=== PATIENT | female | born 1935 | race Caucasian/White ===

== ENCOUNTER 2019-06-23 07:09 | Inpatient (IN) | payer BC ==
[~2019-06-23] VITALS: Ht 154.9 cm; Wt 47.3 kg
--- NOTE | 2019-06-23 07:15 | NUR ---
Patient to ER bed 6 to gown for evaluation. Side rails up. Report given to Venice GARCIA.
--- NOTE | 2019-06-23 07:18 | NUR ---
Patient presented to ER with C/O SOB. Patient A&Ox4, arrived to ER ambulating with cane with Daughter. skin pink, cough present, afebrile denies pain, denies N/V/D. Patient woke up at 2 am "not able to catch my breath". Patient states she has had history of SOB. Patient states she has history of HTN, hystorectomy, right knee sx, and IBS
[2019-06-23 07:20] VITALS: BP_SYST 137
--- NOTE | 2019-06-23 07:40 | NUR ---
Radiology at bedside for portable chest x-ray.
--- NOTE | 2019-06-23 07:50 | NUR ---
ER Dr. Mcguire at bedside examining patient.
[2019-06-23 07:54] LABS: ANION GAP 7 (5-15); CALCIUM 9.4 mg/dL (8.4-11.0); CHLORIDE 107 mmol/L (98-107); CREATININE 1.35 mg/dL (0.55-1.30); GLUCOSE 91 mg/dL (70-99); POTASSIUM 4.1 mmol/L (3.5-5.1); SODIUM SERUM 137 mmol/L (136-145); UREA NITROGEN, BLOOD 29 mg/dL (8-21)
[2019-06-23 07:59] LABS: ALANINE AMINOTRANSFERASE 49 U/L (12-78); ALBUMIN 3.5 g/dL (3.4-4.8); ASPARTATE AMINOTRANSFERASE 66 U/L (10-37); TOTAL BILIRUBIN 0.8 mg/dL (0.0-1.0)
--- NOTE | 2019-06-23 07:59 | NUR ---
Respiratory at bedside for ABG
[2019-06-23 08:07] LABS: BASOPHILS # (AUTO) 0.1 K/uL (0.0-0.2); BASOPHILS % (AUTO) 1.7 % (0.0-2.0); EOSINOPHILS # (AUTO) 0.2 K/uL (0.0-0.4); EOSINOPHILS % (AUTO) 4.7 % (0.0-4.0); HEMATOCRIT 34.6 % (36-48); HEMOGLOBIN 11.6 g/dL (12.0-16.0); LYMPHOCYTES # (AUTO) 0.9 K/uL (1.0-5.5); LYMPHOCYTES % (AUTO) 22.2 % (20.5-51.5); MEAN CORPUSCULAR HEMOGLOBIN 33 pg (27-31); MEAN CORPUSCULAR HGB CONC 34 % (32-36); MEAN CORPUSCULAR VOLUME 98 fL (79.0-98.0); MONOCYTES # (AUTO) 0.4 K/uL (0.0-1.0); MONOCYTES % (AUTO) 8.8 % (1.7-9.3); NEUTROPHILS # (AUTO) 2.5 K/uL (1.8-7.7); NEUTROPHILS % (AUTO) 62.6 % (40.0-70.0); PLATELET COUNT (AUTO) 187 K/uL (130-430); RED BLOOD CELL COUNT(AUTO) 3.55 MIL/uL (4.2-6.2); RED CELL DISTRIBUTION WIDTH 15.5 % (9.0-15.0)
[2019-06-23 08:23] LABS: PROTHROMBIN TIME 10.5 SECS (9.5-12.5)
[2019-06-23] MEDS ORDERED: CITA20SO PO (08:59)
[2019-06-23] MEDS ORDERED: NITR-85 PO (09:02)
[2019-06-23] MEDS ORDERED: DICY10CA13 PO (09:02)
[2019-06-23] MEDS ORDERED: NOR10 PO (09:08)
[2019-06-23] MEDS ORDERED: ONDA4TAB5 PO (09:08)
[2019-06-23] MEDS ORDERED: IOHEXOL 350 mgI/mL, 150 ML INFUS..BTL IV ONE (09:13)
[2019-06-23] MEDS ORDERED: ACETAMINOPHEN 325 MG TABLET PO PRN (09:15)
--- NOTE | 2019-06-23 09:33 | NUR ---
Patient will be admitted to care of Dr. Taylor. Admitted to Tele unit. Will go to room 122A . Belongings list completed. Summary report printed. Report will be given at bedside. Transfer to Tele via ACLS protocol. Licensed nurse present. IV present no signs or symptoms of infiltration.
--- NOTE | 2019-06-23 09:38 | NUR ---
ADMISSION NOTE Received patient from ER via jennifer, received report from MIKEY GARCIA. Patient admitted with diagnosis of . Patient oriented to hospital routine, call light, toileting and safety-patient verbalized understanding.
--- NOTE | 2019-06-23 09:43 | NUR ---
CONSULTATION PAGED REASON FOR CONSULTATION:CHF WAS CONSULT CALLED?Y PERSON WHO WAS NOTIFIED:PURVI CONSULTING PHYSICIAN:FELA EMMANUEL SHANK SCOURER SPECIALTY:CARDIO SHANK SCOURER PHONE NUMBER:[phone] REQUESTING PHYSICIAN:EAMON GALLEGOS
--- NOTE | 2019-06-23 09:50 | NUR ---
Left message For Jeanne(daughter of patient) update re:admission to hospital.
[2019-06-23 09:51] VITALS: BP_SYST 157
--- NOTE | 2019-06-23 09:54 | NUR ---
MD SERVANDO CASTILLO CALLED AT SPOKE WITH DR.REDDY HEATH MALLU PERSONAL COACH.
--- NOTE | 2019-06-23 09:55 | NUR ---
INITIAL ADMISSION NOTE Patient resting in the bed. No acute distress. Respiration even and unlabored noted. On O2 2L/min via NC. AAO x 4. Denied of pain at this time. Skin warm and dry to touch. SL intact to LFA, no redness, no swelling, patent. Discussed the safety issue, use call light when needs help, and plan of care, verbally understanding. Safety measure maintained. Bed locked in low position, side rails up, bed alarm on. Call light within reached. Will continue to monitor.
[2019-06-23 10:09] LABS: CHOLESTEROL 130 mg/dL (<200); HDL CHOLESTEROL 57 mg/dL (>55); LDL CHOLESTEROL 67 mg/dL (<100); TRIGLYCERIDES 56 mg/dL (30-150)
--- NOTE | 2019-06-23 10:10 | NUR ---
BATHROOM Assisted patient to bathroom by using cane, void freely without problem and regular BM noted. Good pericare provided. Assisted back to bed. Safety measure maintained. Call light within reached. Bed locked in low position, side rails up, bed alarm on. Continue to monitor.
[2019-06-23] MEDS ORDERED: ENOXAPARIN SODIUM 30 MG/0.3 ML SYRINGE SUBCUT ONE (10:15)
[2019-06-23] MEDS ORDERED: ASPIRIN 81 MG TAB.CHEW PO ONE (10:15)
[2019-06-23] MEDS ORDERED: CITALOPRAM HYDROBROMIDE 20 MG TABLET PO ONE (10:15)
[2019-06-23] MEDS ORDERED: METOPROLOL TARTRATE 25 MG TABLET PO ONE (10:30)
[2019-06-23] MEDS ORDERED: FUROSEMIDE 20 MG/2 ML VIAL IVP ONE (10:30)
[2019-06-23 10:34] VITALS: BP_SYST 137
--- NOTE | 2019-06-23 10:34 | NUR ---
2D ECHO DOING AT BEDSIDE AT THIS TIME
[2019-06-23] MEDS: ALBUTEROL SULFATE 0.083% 2.5 MG/3 ML VIAL.NEB INH SCH ×4 (11:03→22:59)
[2019-06-23 12:00] VITALS: BP_SYST 157
--- NOTE | 2019-06-23 12:00 | NUR ---
RECEIVED THE CALL FROM EAMON DENG REGARDING THE CT CHEST WITH CONTRAST RESULT Reported the result of CT chest with IV contrast to Dr. Taylor. No evidence of PE, mild chronic lung changes with mild intralobular septal thickening and small bilateral effusion, There is faint nodular infiltrate along the minor fissure measuring 7mm.
--- NOTE | 2019-06-23 12:50 | NUR ---
BATHROOM Assisted patient to bathroom by using cane, void freely with yellow urine. Good pericare provided. Assisted back to bed. Safety measure maintained. Call light within reached. Bed locked in low position, side rails up, bed alarm on. Continue to monitor.
[2019-06-23] MEDS: ONDANSETRON HCL 4 MG/2 ML VIAL IVP PRN (13:36)
[2019-06-23] MEDS: NORMAL SALINE 5 ML DISP.SYRIN IVF SCH ×2 (13:36→20:46)
--- NOTE | 2019-06-23 15:00 | NUR ---
RESTING Patient resting in the bed. No acute distress. Continue on O2 2L/min via NC. No c/o nausea. Daughter at bedside. Safety measure maintained. Call light within reached. Bed locked in low position, side rails up. Continue to monitor.
[2019-06-23 16:00] VITALS: BP_SYST 156
--- NOTE | 2019-06-23 17:11 | NUR ---
ROUND Patient resting in the bed. No acute distress. Continue on O2 2L/min via NC. Safety measure maintained. Bed locked in low position, side rails up, bed alarm on. Call light within reached. Continue to monitor.
--- NOTE | 2019-06-23 18:33 | NUR ---
CLOSING NOTE Patient resting in the bed. No acute distress. Respiration even and unlabored noted. Continue on O2 2L/min via NC. Denied of pain. Skin warm and dry to touch. SL intact to LFA, no redness, no swelling, patent. All needs met and attended. Daughter at bedside. Safety measure maintained. Bed locked in low position, side rails up, bed alarm on. Call light within reached. Will endorse to night nurse.
--- NOTE | 2019-06-23 19:45 | NUR ---
OPENING NOTES Received patient resting in bed, no acute respiratory distress observed. Patient has IV on Left FA 22g, Saline lock. Bed alarm on, bed at lowest position, and call light within reach. Will continue to monitor.
[2019-06-23 20:00] VITALS: BP_SYST 159
[2019-06-23] MEDS: METOPROLOL TARTRATE 25 MG TABLET PO SCH (20:45)
[2019-06-23] MEDS: FUROSEMIDE 20 MG/2 ML VIAL IVP SCH (20:46)
--- NOTE | 2019-06-23 22:07 | NUR ---
Assisted patient to bathroom, ambulates with cane. Call light within reach, bed alarm on, and bed at lowest position. Reoriented to use of call light prior to getting up out of bed. Will continue to monitor.
--- NOTE | 2019-06-23 22:28 | NUR ---
DR NAN AL FOR MEDICATION ORDERS. CALLED [phone] SPOKE WITH MANSOOR Gamboa
[2019-06-23] MEDS ORDERED: IBUPROFEN 200 MG TABLET PO ONE (23:00)
[2019-06-23] MEDS ORDERED: IBUPROFEN 200 MG TABLET ONE (23:58)
--- NOTE | 2019-06-24 | NUR ---
Assisted patient to restroom, Ibuprofen 200mg administered per MD order. No acute respiratory distress observed. Will continue to monitor and assess. Safety precautions in place.
[2019-06-24 01:24] VITALS: BP_SYST 161
--- NOTE | 2019-06-24 02:15 | NUR ---
Assisted patient to the restroom, ambulates with a steady gait. No signs of acute respiratory distress observed. Will continue to monitor.
[2019-06-24] MEDS: ALBUTEROL SULFATE 0.083% 2.5 MG/3 ML VIAL.NEB INH SCH ×6 (03:00→23:15)
[2019-06-24] MEDS: ONDANSETRON HCL 4 MG/2 ML VIAL IVP PRN ×2 (03:23→18:21)
--- NOTE | 2019-06-24 04:02 | NUR ---
Patient complains of nausea and Zofran 4mg/2ml administered per MD order. Education provided for side effects and use of call light for safety. Bed alarm on, bed at lowest position, and call light within reach. Will continue to monitor and assess.
[2019-06-24 05:43] LABS: BASOPHILS % (AUTO) 0.7 % (0.0-2.0); EOSINOPHILS % (AUTO) 1.1 % (0.0-4.0); HEMATOCRIT 36.7 % (36-48); HEMOGLOBIN 12.5 g/dL (12.0-16.0); LYMPHOCYTES # (AUTO) 0.6 K/uL (1.0-5.5); LYMPHOCYTES % (AUTO) 14.9 % (20.5-51.5); MEAN CORPUSCULAR HEMOGLOBIN 32 pg (27-31); MEAN CORPUSCULAR HGB CONC 34 % (32-36); MONOCYTES # (AUTO) 0.5 K/uL (0.0-1.0); MONOCYTES % (AUTO) 11.3 % (1.7-9.3); NEUTROPHILS # (AUTO) 3.1 K/uL (1.8-7.7); PLATELET COUNT (AUTO) 188 K/uL (130-430); RED BLOOD CELL COUNT(AUTO) 3.86 MIL/uL (4.2-6.2); RED CELL DISTRIBUTION WIDTH 14.9 % (9.0-15.0); WHITE BLOOD COUNT (AUTO) 4.3 K/uL (4.8-10.8)
--- NOTE | 2019-06-24 05:52 | NUR ---
BED ALARM REFUSED Assisted patient to go to the restroom, steady gait with cane. Assisted patient with calling her daughter, Jeanne. Patient is alert, forgetful, no acute respiratory distress observed, 2L NC. Reoriented patient to use of call light. Patient refused bed alarm after patient education on risks and benefits of bed alarm, bed at lowest position, and call light within reach. Will continue to monitor.
[2019-06-24] MEDS: NORMAL SALINE 5 ML DISP.SYRIN IVF SCH ×3 (06:20→21:57)
--- NOTE | 2019-06-24 06:29 | NUR ---
CLOSING NOTES Patient is resting in bed, no acute respiratory distress observed, 2L NC. IV LFA 22g, patent, Saline Lock, dressings c/d/i. All needs met throughout shift. Call light within reach, bed alarm refused after patient educated on risks and benefits of bed alarm, bed at lowest position. Will endorse care to oncoming shift.
[2019-06-24 06:54] LABS: ALANINE AMINOTRANSFERASE 47 U/L (12-78); ALBUMIN 3.5 g/dL (3.4-4.8); ANION GAP 8 (5-15); ASPARTATE AMINOTRANSFERASE 40 U/L (10-37); CALCIUM 9.2 mg/dL (8.4-11.0); CHLORIDE 100 mmol/L (98-107); CREATININE 1.38 mg/dL (0.55-1.30); GLUCOSE 102 mg/dL (70-99); POTASSIUM 3.4 mmol/L (3.5-5.1); SODIUM SERUM 137 mmol/L (136-145); TOTAL BILIRUBIN 0.9 mg/dL (0.0-1.0); UREA NITROGEN, BLOOD 24 mg/dL (8-21)
--- NOTE | 2019-06-24 06:55 | NUR ---
A FLUTTER Bread And Pastry Baker notified of cardiac rhythm A-flutter. Will endorse to oncoming shift.
[2019-06-24 07:15] LABS: MEAN CORPUSCULAR VOLUME 95 fL (79.0-98.0)
[2019-06-24 08:00] VITALS: BP_SYST 145
--- NOTE | 2019-06-24 08:00 | NUR ---
Initial Note-Pt awake, alert, and oriented. Daughter at bedside. Denies any pain, dizziness, or discomfort. Pt on 2L nasal cannula, saturating at 98%. IV patent. Safety precautions in place, bed in low position with bed alarm on, and call light within reach and encourage pt to use.
[2019-06-24] MEDS: POTASSIUM CHLORIDE 8 MEQ TABLET.SA PO SCH (09:09)
[2019-06-24] MEDS: CITALOPRAM HYDROBROMIDE 20 MG TABLET PO SCH (09:10)
[2019-06-24] MEDS: ASPIRIN 81 MG TAB.CHEW PO SCH (09:11)
[2019-06-24] MEDS: METOPROLOL TARTRATE 25 MG TABLET PO SCH ×2 (09:11→21:44)
[2019-06-24] MEDS: FUROSEMIDE 20 MG/2 ML VIAL IVP SCH ×2 (09:15→21:44)
[2019-06-24] MEDS: ENOXAPARIN SODIUM 30 MG/0.3 ML SYRINGE SUBCUT SCH (09:15)
--- NOTE | 2019-06-24 10:49 | NUR ---
PA Rounds- PA Paradones from Dr. Canas office, seen pt at bedside. PA aware of A flutter.
--- NOTE | 2019-06-24 10:50 | NUR ---
MD ROUNDS- Dr. Peralta at bedside.
--- NOTE | 2019-06-24 11:00 | NUR ---
Notes- assisted to the bathroom and urinated. Denies any pain or shortness of breath. will continue to monitor.
[2019-06-24 11:15] VITALS: BP_SYST 141
--- NOTE | 2019-06-24 13:35 | NUR ---
SS Note: BANKMAN met with patient for discharge plan assessment. BANKMAN met with patient with grand daughter Leah at bedside. Pt confirmed demographic information and updated (Person to Notify: Leah Velarde @ [phone]). Per pt she's had shortness of breath for a month now. Pt went to visit PCP, dr. Matt Quinonez and was referred to see a paper steamer whom is no longer practicing in [place]. Pt states she informed her daughter Jeanne and daughter brought pt to closest ER which is [facility]. Pt states she lives alone and daughter Jeanne visits her every weekend and at least 1x on the weekday. Pt states she is independent with driving to/from MD appointments, cleaning home, toilet and bathing and gets food from [employer] 3x/week and her daughter Jeanne pays for [employer]. Pt states she utilizes a cane to go around the community and it is her only DME. Pt states there are 7 steps to get to the front door. Pt states she has a history of being anxious and no other mental health history. Pt denies depression in the past and currently. Pt states she receives a lot of support from her 2 daughters and her 3 grand children. Pt states she receives SSI of $1400/monthly and no other source of income. Pt is interested in getting help with care giving and other senior resources. BANKMAN consulted [employer] for [employer] application and emailed pt's information. BANKMAN provided pt with SS and HCP CM phone number. BANKMAN provided pt with IHSS, Senior Booklet, Home Care Agencies and Senior Services resources. Pt was thankful and will call caregiving agencies for prices. SS will remain available for additional support and when needed.
--- NOTE | 2019-06-24 14:25 | NUR ---
Dietitian Recommendations *Recommend Cardiac w/ Ensure Clear BID. (ONS will provide additional 480 kcal and 16 gm protein daily) Please see Nutritional Assessment for details. CAROLE, RD
--- NOTE | 2019-06-24 14:30 | NUR ---
Notes-Assisted pt to restroom, steady gait. Denies any chest pain or SOB. Repositioned for comfort. Complaining of nausea. PRN zofran was given earlier, next dose can not be given until 1640. Pt verbalized understanding. Offered cold towel on forehead, pt accepted. Addendum: 06/24/19 at 1449 by Brittny Johnson RN JOCELYNE-REGARD, WRONG PT ENTRY.
--- NOTE | 2019-06-24 14:30 | NUR ---
Notes-Assisted pt to restroom, pt uses cane at bedside, steady gait. Denies any pain or SOB. Pt requested prune juice, kitchen aware and will be bringing juice. Pt on 2L nasal cannula, tolerating well.
[2019-06-24 15:20] VITALS: BP_SYST 139
--- NOTE | 2019-06-24 18:14 | NUR ---
Closing Note-Pt awake, daughter at beside. Assisted pt back into bed, repositioned for comfort. Denies any SOB. Pt on 2L nasal cannula, tolerating well. IV LFA patent. All needs met throughout shift. Safety precautions in place, bed alarm on and in lowest position, call light within reach and encourage pt to use for assistance. Will continue to monitor until pt care is endorsed to mill dresser nurse.
--- NOTE | 2019-06-24 19:38 | NUR ---
Opening note Received patient awake, resting in bed, AOx4. No sign of distress, non-labored breathing on room air. IV to LFA is SL. Bed is locked to lowest position, bed alarm on, instructed on use of call light and she demonstrated use. Updated board and reviewed plan of care.
--- NOTE | 2019-06-24 19:42 | NUR ---
RT-breathing treatment RT providing breathing treatment, patient tolerating. HR presently 89.
[2019-06-24 20:00] VITALS: BP_SYST 145
--- NOTE | 2019-06-24 21:58 | NUR ---
MEDICATIONS Due medications given, Metoprolol and Lasix. B/P 165/87 and HR 99. Educated on side effects and she verbalized understanding. She ambulated to the restroom, using a cane and returned to bed, bed alarm on. Presently denies nausea. She requested lights off, no further needs.
--- NOTE | 2019-06-24 23:34 | NUR ---
OOB Patient is out of bed for use of restroom, 3rd time. She washed hands and returned to bed with use of cane. Will monitor.
[2019-06-25 00:24] VITALS: BP_SYST 156
[2019-06-25] MEDS: ALBUTEROL SULFATE 0.083% 2.5 MG/3 ML VIAL.NEB INH SCH ×3 (03:00→11:25)
[2019-06-25 04:15] VITALS: BP_SYST 162
--- NOTE | 2019-06-25 04:15 | NUR ---
Awake, V/S Patient is awake, ambulated to restroom and returned to bed. V/S taken: B/P 162/92, Will f/up.
[2019-06-25] MEDS: NORMAL SALINE 5 ML DISP.SYRIN IVF SCH (05:33)
--- NOTE | 2019-06-25 05:37 | NUR ---
C/O Headache Patient c/o headache and given Tylenol as ordered. Ambulated to restroom, returned to bed. Will monitor.
--- NOTE | 2019-06-25 08:00 | NUR ---
RN INITIAL NOTES RECEIVED PATIENT IN BED NOT IN ANY DISTRESS NO DISTRESS PATIENT ALERT X 4 RESP EVEN AND UNLABORED POSITIVE BOWEL SOUNDS TO 4 QUADRANT SAFETY ENSURED CALL LIGHT WITHIN REACH PATIENT UNDERSTAND PLAN OF CARE AM MEDS GIVEN AND WILL CONT CARE
[2019-06-25 08:08] VITALS: BP_SYST 147; BP_SYST 166
[2019-06-25] MEDS: POTASSIUM CHLORIDE 8 MEQ TABLET.SA PO SCH (08:24)
[2019-06-25] MEDS: CITALOPRAM HYDROBROMIDE 20 MG TABLET PO SCH (08:25)
[2019-06-25] MEDS: ASPIRIN 81 MG TAB.CHEW PO SCH (08:25)
[2019-06-25] MEDS: METOPROLOL TARTRATE 25 MG TABLET PO SCH (08:28)
[2019-06-25] MEDS: FUROSEMIDE 20 MG/2 ML VIAL IVP SCH (08:29)
[2019-06-25] MEDS: ENOXAPARIN SODIUM 30 MG/0.3 ML SYRINGE SUBCUT SCH (08:33)
--- NOTE | 2019-06-25 10:06 | NUR ---
Room Air saturation: Saturation is 96% on room air. No shortness of breath. Able to get up to the sink/bathroom with supervision. Patient prefers to use cane.
[2019-06-25 11:13] VITALS: BP_SYST 147; BP_SYST 148
--- NOTE | 2019-06-25 11:31 | NUR ---
Cardio communication: Paged cardio for DC home clearance.
--- NOTE | 2019-06-25 11:57 | NUR ---
cardio clearance: okay to DC home per Dr. Foster. Follow up appointment with Dr. López on Jun 25 at 1400. Patient's daughter Ondina is aware of the discharge.
[2019-06-25] MEDS ORDERED: APIX2.5T PO (12:10)
[2019-06-25] MEDS ORDERED: FURO-149 PO (12:10)
[2019-06-25] MEDS ORDERED: METO25TA6 PO (12:11)
[2019-06-25 12:55] VITALS: BP_SYST 148
--- NOTE | 2019-06-25 14:00 | NUR ---
D/C Patient Patient given medication reconciliation form and D/C instructions. Exit Care provided. Patient verbalized understanding. MD discussed with patient the results and treatment provided. Ambulatory, uses cane for discharge to home. Patient in stable condition, ID band removed. IV catheter removed, intact and dressing applied, no active bleeding. Rx of Lasix, Eliquis, Metoprolol given. Patient educated on disease management. Follow up appointment with Dr. López (cardio) on Jun 27 at 1400. All belongings sent with patient.
== END 2019-06-25 14:10 | disposition home or self-care (01) | DRG 291 ==
LOC: SED 07:09 → STU 09:02
PROVIDERS: ADMIT Internal Medicine; ATTEND Internal Medicine
DX: I11.0 Hypertensive heart disease with heart failure (principal); I50.31 Acute diastolic (congestive) heart failure; I48.91 Unspecified atrial fibrillation; K58.9 Irritable bowel syndrome, unspecified; M19.90 Unspecified osteoarthritis, unspecified site; K21.9 Gastro-esophageal reflux disease without esophagitis; F32.9 Major depressive disorder, single episode, unspecified; Z79.899 Other long term (current) drug therapy
CPT/HCPCS: 36415; 36600; 71045; 71275; 80053; 80061; 82803-TC; 83605; 83880; 84484; 85025; 85379; 85610-TC; 87040-TC; 93005; 93306; 94640; 94760; 97112-GP; 97116-GP; 97530-GP; 99285; G0378; J1650; J1940; J2405; J7613; Q9967

== ENCOUNTER 2019-09-09 11:06 | Emergency (ER) | payer BC ==
[~2019-09-09] VITALS: Ht 154.9 cm; Wt 39.5 kg
[~2019-09-09 11:06] MED LIST: APIX2.5T PO; CITA20SO2 PO; DICY10CA13 PO; FURO-149 PO; METO25TA6 PO
[2019-09-09 11:32] VITALS: BP_SYST 162
--- NOTE | 2019-09-09 11:41 | NUR ---
Patient to ER bed 08 to gown for evaluation. Side rails up.
--- NOTE | 2019-09-09 11:43 | NUR ---
Patient arrived in the ED c/o 04/24 pain on the right shoulder post mechanical fall this morning. Patient stated she fell and landed on the right side of her face. Patient is alert and oriented x3, VS WNL, speaking in full sentences, respirations even and unlabored. Instructed to notify ED staff if symptoms worsen while waiting to be seen by a provider. Patient verbalized understanding.
--- NOTE | 2019-09-09 11:45 | NUR ---
ER Dr. Mcguire at bedside examining patient.
--- NOTE | 2019-09-09 11:55 | NUR ---
Administered Toradol 30mg IM as ordered by Dr. Mcguire. Patient tolerated the medication well.
[2019-09-09] MEDS ORDERED: KETOROLAC TROMETHAMINE 30 MG VIAL IM ONE (12:15)
--- NOTE | 2019-09-09 12:15 | NUR ---
Patient is taken to Radiology via gurney, in stable condition.
--- NOTE | 2019-09-09 12:20 | NUR ---
Patient is back from Radiology, in stable condition. Daughter at bedside.
[2019-09-09 14:35] VITALS: BP_SYST 162
--- NOTE | 2019-09-09 14:35 | NUR ---
Patient given written and verbal discharge instructions and verbalizes understanding. ER MD discussed with patient the results and treatment provided. Patient in stable condition. ID arm band removed. Rx of Motrin given. Patient educated on pain management and to follow up with PMD. Pain Scale 0/10. Opportunity for questions provided and answered. Medication side effect fact sheet provided.
== END 2019-09-09 14:35 | disposition home or self-care (01) ==
LOC: SED 11:06
DX: S93.402A Sprain of unspecified ligament of left ankle, initial encounter (principal); S43.401A Unspecified sprain of right shoulder joint, initial encounter; J32.9 Chronic sinusitis, unspecified; M25.561 Pain in right knee; I10 Essential (primary) hypertension; Z79.899 Other long term (current) drug therapy; W01.198A Fall on same level from slipping, tripping and stumbling with subsequent striking against other object, initial encounter; Y93.89 Activity, other specified; Y92.89 Other specified places as the place of occurrence of the external cause; Y99.8 Other external cause status
CPT/HCPCS: 70450; 70486; 71045; 73030; 73060; 73564; 73590; 96372; 99284; J1885

== ENCOUNTER 2019-11-17 08:37 | Inpatient (IN) | payer BC ==
[~2019-11-17] VITALS: Ht 154.9 cm; Wt 41.7 kg
[2019-11-17] MEDS ORDERED: NACL 0.9% 1,000 ML IV ONE (08:46)
[2019-11-17 08:49] VITALS: BP_SYST 148
[2019-11-17] MEDS ORDERED: methylPREDNISolone SOD SUCC/PF 62.5 MG/ML VIAL IVP ONE (09:00)
[2019-11-17] MEDS ORDERED: IPRATROPIUM BROM 0.5 MG/2.5 ML VIAL.NEB (ATROVENT) INH ONE (09:00)
[2019-11-17 09:14] LABS: BASOPHILS % (AUTO) 0.9 % (0.0-2.0); EOSINOPHILS # (AUTO) 0.3 K/uL (0.0-0.4); EOSINOPHILS % (AUTO) 6.9 % (0.0-4.0); HEMATOCRIT 37.4 % (36-48); HEMOGLOBIN 12.4 g/dL (12.0-16.0); LYMPHOCYTES # (AUTO) 0.8 K/uL (1.0-5.5); LYMPHOCYTES % (AUTO) 20.4 % (20.5-51.5); MEAN CORPUSCULAR HEMOGLOBIN 33 pg (27-31); MEAN CORPUSCULAR HGB CONC 33 % (32-36); MEAN CORPUSCULAR VOLUME 99 fL (79.0-98.0); MONOCYTES # (AUTO) 0.5 K/uL (0.0-1.0); MONOCYTES % (AUTO) 11.5 % (1.7-9.3); NEUTROPHILS # (AUTO) 2.4 K/uL (1.8-7.7); NEUTROPHILS % (AUTO) 60.3 % (40.0-70.0); PLATELET COUNT (AUTO) 223 K/uL (130-430); RED BLOOD CELL COUNT(AUTO) 3.78 MIL/uL (4.2-6.2); RED CELL DISTRIBUTION WIDTH 13.4 % (9.0-15.0)
[2019-11-17 09:26] LABS: ANION GAP 7 (5-15); CHLORIDE 101 mmol/L (98-107); CREATININE 1.39 mg/dL (0.55-1.30); GLUCOSE 94 mg/dL (70-99); POTASSIUM 3.9 mmol/L (3.5-5.1); SODIUM SERUM 138 mmol/L (136-145); UREA NITROGEN, BLOOD 36 mg/dL (8-21)
[2019-11-17 09:32] LABS: INR 1.1 (0.8-1.2); PROTHROMBIN TIME 10.6 SECS (9.5-12.5)
[2019-11-17 09:33] LABS: ALANINE AMINOTRANSFERASE 17 U/L (12-78); ALBUMIN 3.3 g/dL (3.4-4.8); ASPARTATE AMINOTRANSFERASE 23 U/L (10-37); LIPASE 146 U/L (73-393); TOTAL BILIRUBIN 0.7 mg/dL (0.0-1.0)
[2019-11-17 09:58] LABS: BILIRUBIN,URINE NEGATIVE (NEGATIVE); BLOOD, URINE NEGATIVE (NEGATIVE); CLARITY/URINE CLEAR (CLEAR); COLOR,URINE YELLOW (YELLOW); GLUCOSE,URINE NEGATIVE (NEGATIVE); KETONES,URINE NEGATIVE (NEGATIVE); LEUKOCYTE ESTERASE ,URINE NEGATIVE (NEGATIVE); NITRITE, URINE NEGATIVE (NEGATIVE); PROTEIN URINE NEGATIVE (NEGATIVE); UROBILINOGEN,URINE 0.2 (0.2-1.0)
[2019-11-17] MEDS ORDERED: LORazepam 2 MG/ML VIAL IVP PRN (12:15)
[2019-11-17] MEDS ORDERED: HYDROcodone/ACETAMIN 10-325 MG TAB PO PRN (12:15)
[2019-11-17] MEDS ORDERED: ONDANSETRON HCL 4 MG/2 ML VIAL IVP PRN (12:15)
[2019-11-17] MEDS ORDERED: ACETAMINOPHEN 325 MG TABLET PO PRN (12:15)
[2019-11-17] MEDS ORDERED: HYDROcodone/ACETAMIN 5-325 MG TAB (NORCO/ VICODIN) PO PRN (12:15)
[2019-11-17 12:17] VITALS: BP_SYST 138
[2019-11-17] MEDS: NORMAL SALINE 5 ML DISP.SYRIN IVF SCH ×2 (13:12→20:30)
[2019-11-17] MEDS ORDERED: NORMAL SALINE 5 ML DISP.SYRIN IVF SCH (14:00)
[2019-11-17 16:17] VITALS: BP_SYST 113
[2019-11-17 19:00] VITALS: BP_SYST 120
[2019-11-17 20:00] VITALS: BP_SYST 120
[2019-11-17] MEDS: METOPROLOL TARTRATE 25 MG TABLET PO SCH (20:29)
[2019-11-17] MEDS: DICYCLOMINE HCL 10 MG CAPSULE PO SCH (20:29)
[2019-11-17] MEDS: APIXABAN 2.5 MG TABLET PO SCH (20:31)
[2019-11-17] MEDS ORDERED: traZODone HCL 50 MG TABLET (DESYREL) PO PRN (21:15)
[2019-11-17] MEDS: BENZOCAINE/MENTHOL 1 EACH LOZENGE MM PRN (21:26)
[2019-11-18 00:35] VITALS: BP_SYST 122
[2019-11-18] MEDS: NORMAL SALINE 5 ML DISP.SYRIN IVF SCH ×3 (06:00→21:28)
[2019-11-18 08:04] VITALS: BP_SYST 134
[2019-11-18 08:07] LABS: BASOPHILS % (AUTO) 0.1 % (0.0-2.0); HEMATOCRIT 36.5 % (36-48); HEMOGLOBIN 12.3 g/dL (12.0-16.0); LYMPHOCYTES # (AUTO) 0.8 K/uL (1.0-5.5); LYMPHOCYTES % (AUTO) 13.6 % (20.5-51.5); MEAN CORPUSCULAR HEMOGLOBIN 33 pg (27-31); MEAN CORPUSCULAR HGB CONC 34 % (32-36); MEAN CORPUSCULAR VOLUME 99 fL (79.0-98.0); MONOCYTES # (AUTO) 0.4 K/uL (0.0-1.0); MONOCYTES % (AUTO) 7.4 % (1.7-9.3); NEUTROPHILS # (AUTO) 4.6 K/uL (1.8-7.7); NEUTROPHILS % (AUTO) 78.9 % (40.0-70.0); PLATELET COUNT (AUTO) 217 K/uL (130-430); RED CELL DISTRIBUTION WIDTH 13.2 % (9.0-15.0); WHITE BLOOD COUNT (AUTO) 5.9 K/uL (4.8-10.8)
[2019-11-18] MEDS: DICYCLOMINE HCL 10 MG CAPSULE PO SCH ×2 (08:14→21:25)
[2019-11-18] MEDS: FUROSEMIDE 40 MG TABLET PO SCH (08:14)
[2019-11-18] MEDS: CITALOPRAM HYDROBROMIDE 20 MG TABLET PO SCH (08:15)
[2019-11-18] MEDS: METOPROLOL TARTRATE 25 MG TABLET PO SCH ×2 (08:15→21:25)
[2019-11-18 08:19] LABS: ALANINE AMINOTRANSFERASE 8 U/L (12-78); ALBUMIN 2.3 g/dL (3.4-4.8); ANION GAP 8 (5-15); ASPARTATE AMINOTRANSFERASE 16 U/L (10-37); CALCIUM 8.7 mg/dL (8.4-11.0); CHLORIDE 103 mmol/L (98-107); CREATININE 1.34 mg/dL (0.55-1.30); GLUCOSE 113 mg/dL (70-99); PHOSPHORUS 3.1 mg/dL (2.7-4.5); POTASSIUM 3.4 mmol/L (3.5-5.1); SODIUM SERUM 139 mmol/L (136-145); TOTAL BILIRUBIN 0.5 mg/dL (0.0-1.0); UREA NITROGEN, BLOOD 39 mg/dL (8-21)
[2019-11-18] MEDS ORDERED: FUROSEMIDE 20 MG/2 ML VIAL IVP ONE (08:45)
[2019-11-18] MEDS ORDERED: ALBUTEROL SULFATE 0.083% 2.5 MG/3 ML VIAL.NEB INH PRN (08:45)
[2019-11-18] MEDS ORDERED: IPRATROPIUM BROM 0.5 MG/2.5 ML VIAL.NEB (ATROVENT) INH PRN (08:45)
[2019-11-18 10:07] VITALS: BP_SYST 134
[2019-11-18] MEDS: APIXABAN 2.5 MG TABLET PO SCH ×2 (10:38→21:27)
[2019-11-18] MEDS: IPRATROPIUM BROM 0.5 MG/2.5 ML VIAL.NEB (ATROVENT) INH SCH ×3 (11:25→19:41)
[2019-11-18] MEDS: ALBUTEROL SULFATE 0.083% 2.5 MG/3 ML VIAL.NEB INH SCH ×3 (11:25→19:41)
[2019-11-18 12:31] VITALS: BP_SYST 120
[2019-11-18 16:47] VITALS: BP_SYST 122
[2019-11-18 21:23] VITALS: BP_SYST 118
[2019-11-19 05:00] VITALS: BP_SYST 139
[2019-11-19] MEDS: NORMAL SALINE 5 ML DISP.SYRIN IVF SCH ×2 (06:03→13:42)
[2019-11-19] MEDS: BENZOCAINE/MENTHOL 1 EACH LOZENGE MM PRN (06:03)
[2019-11-19] MEDS: IPRATROPIUM BROM 0.5 MG/2.5 ML VIAL.NEB (ATROVENT) INH SCH ×2 (07:35→11:39)
[2019-11-19] MEDS: ALBUTEROL SULFATE 0.083% 2.5 MG/3 ML VIAL.NEB INH SCH ×2 (07:35→11:39)
[2019-11-19 07:52] VITALS: BP_SYST 141
[2019-11-19] MEDS: CITALOPRAM HYDROBROMIDE 20 MG TABLET PO SCH (09:08)
[2019-11-19] MEDS: DICYCLOMINE HCL 10 MG CAPSULE PO SCH (09:08)
[2019-11-19] MEDS: FUROSEMIDE 40 MG TABLET PO SCH (09:09)
[2019-11-19] MEDS: METOPROLOL TARTRATE 25 MG TABLET PO SCH (09:10)
[2019-11-19] MEDS: APIXABAN 2.5 MG TABLET PO SCH (09:12)
[2019-11-19 10:40] VITALS: BP_SYST 108
[2019-11-19 11:40] VITALS: BP_SYST 108
[2019-11-19] MEDS ORDERED: POTASSIUM CHLORIDE 20 MEQ TAB.PRT.SR PO ONE (13:30)
[2019-11-19 15:08] VITALS: BP_SYST 106
== END 2019-11-19 15:15 | disposition home or self-care (01) | DRG 682 ==
LOC: SED 08:37 → STU 11:35
PROVIDERS: ADMIT Preventive Medicine Preventive Medicine/Occupational Environmental Medicine; ATTEND Preventive Medicine Preventive Medicine/Occupational Environmental Medicine
DX: N17.9 Acute kidney failure, unspecified (principal); I50.33 Acute on chronic diastolic (congestive) heart failure; J96.00 Acute respiratory failure, unspecified whether with hypoxia or hypercapnia; I13.0 Hypertensive heart and chronic kidney disease with heart failure and stage 1 through stage 4 chronic kidney disease, or unspecified chronic kidney disease; I48.21 Permanent atrial fibrillation; J44.1 Chronic obstructive pulmonary disease with (acute) exacerbation; I27.20 Pulmonary hypertension, unspecified; E88.09 Other disorders of plasma-protein metabolism, not elsewhere classified; I08.1 Rheumatic disorders of both mitral and tricuspid valves; I25.10 Atherosclerotic heart disease of native coronary artery without angina pectoris; N18.9 Chronic kidney disease, unspecified; Z96.651 Presence of right artificial knee joint; K21.9 Gastro-esophageal reflux disease without esophagitis; Z79.01 Long term (current) use of anticoagulants; Z82.3 Family history of stroke; Z82.49 Family history of ischemic heart disease and other diseases of the circulatory system; Z90.710 Acquired absence of both cervix and uterus; Z79.899 Other long term (current) drug therapy
CPT/HCPCS: 36415; 71045; 76770; 80053; 81003; 82550-TC; 83690-TC; 83735-TC; 83880; 84100-TC; 84484; 85025; 85610-TC; 85730-TC; 87040-TC; 93005; 94640; 96374; 99285; G0378; J1940; J2930; J7613

== ENCOUNTER 2020-06-26 18:13 | Inpatient (IN) | payer BC ==
[~2020-06-26] VITALS: Ht 154.9 cm; Wt 41.7 kg
[2020-06-26 18:18] VITALS: BP_SYST 111
--- NOTE | 2020-06-26 18:37 | NUR ---
Patient to ER bed 8 to gown for evaluation. Side rails up. Report given to given to Goyo GARCIA.
--- NOTE | 2020-06-26 18:40 | NUR ---
DR JOHNSON IN TO ASSESS
--- NOTE | 2020-06-26 18:43 | NUR ---
RECEIVED AND IN ROOM, SOHAN TO ASSUME CARE
--- NOTE | 2020-06-26 18:52 | NUR ---
Note undone in EDM - 06/26/20 at 1855 by REDFS BIB EMT FROM HOME FOR LBP. PT CALM, CONFUSED, RESP UNLABORED, DENIES FALL OR INJURY. UNAWARE OF PAST MEDICAL HX OR RECENT EVENTS
--- NOTE | 2020-06-26 18:58 | NUR ---
BREATHING TX IN PROGRESS. RESP UNLABORED, COMMUNICATES CLEARLY
[2020-06-26] MEDS ORDERED: predniSONE 20 MG TABLET PO ONE (19:00)
[2020-06-26] MEDS ORDERED: IPRATROPIUM/ALBUTEROL SULFATE 3 ML AMPUL.NEB (DUONEB) INH ONE (19:00)
--- NOTE | 2020-06-26 19:00 | NUR ---
LABS OBTAINED, EKG COMPLETED
[2020-06-26 19:25] LABS: BASOPHILS # (AUTO) 0.1 K/uL (0.0-0.2); EOSINOPHILS # (AUTO) 0.2 K/uL (0.0-0.4); EOSINOPHILS % (AUTO) 4.5 % (0.0-4.0); HEMATOCRIT 30.7 % (36-48); HEMOGLOBIN 10.2 g/dL (12.0-16.0); LYMPHOCYTES # (AUTO) 1.3 K/uL (1.0-5.5); LYMPHOCYTES % (AUTO) 25.7 % (20.5-51.5); MEAN CORPUSCULAR HEMOGLOBIN 31 pg (27-31); MEAN CORPUSCULAR HGB CONC 33 % (32-36); MEAN CORPUSCULAR VOLUME 94 fL (79.0-98.0); MONOCYTES # (AUTO) 0.6 K/uL (0.0-1.0); NEUTROPHILS % (AUTO) 57.8 % (40.0-70.0); PLATELET COUNT (AUTO) 213 K/uL (130-430); RED BLOOD CELL COUNT(AUTO) 3.27 MIL/uL (4.2-6.2); RED CELL DISTRIBUTION WIDTH 14.8 % (9.0-15.0); WHITE BLOOD COUNT (AUTO) 5.2 K/uL (4.8-10.8)
[2020-06-26 19:38] LABS: ANION GAP 6 (5-15); CALCIUM 9.2 mg/dL (8.4-11.0); CHLORIDE 100 mmol/L (98-107); CREATININE 2.42 mg/dL (0.55-1.30); GLUCOSE 101 mg/dL (70-99); SODIUM SERUM 131 mmol/L (136-145); UREA NITROGEN, BLOOD 59 mg/dL (8-21)
[2020-06-26 19:44] LABS: ALANINE AMINOTRANSFERASE 17 U/L (12-78); ALBUMIN 3.4 g/dL (3.4-4.8); ASPARTATE AMINOTRANSFERASE 20 U/L (10-37); TOTAL BILIRUBIN 0.3 mg/dL (0.0-1.0)
--- NOTE | 2020-06-26 21:27 | NUR ---
RESTING EASY, RESP UNLABORED, COMMUNICATES CLEARLY IN FULL COMPLETE SENTENCES SR ON MONITOR SAO2 >95% ON RA
--- NOTE | 2020-06-26 22:45 | NUR ---
VSS NO S/S OF ACUTE DISTRESS RESTING ON GURNEY RAILS UP
[2020-06-26] MEDS ORDERED: HYDROcodone/ACETAMIN 10-325 MG TAB PO PRN (23:15)
[2020-06-26] MEDS ORDERED: HYDROcodone/ACETAMIN 5-325 MG TAB (NORCO/ VICODIN) PO PRN (23:15)
[2020-06-26] MEDS ORDERED: NALOXONE HCL 0.4 MG/ML AMP (NARCAN) IVP PRN ×2 (23:15)
[2020-06-26] MEDS ORDERED: LORazepam 2 MG/ML VIAL IVP PRN (23:15)
[2020-06-26] MEDS ORDERED: ACETAMINOPHEN 325 MG TABLET PO PRN (23:15)
[2020-06-26] MEDS ORDERED: ALBUTEROL SULFATE 0.083% 2.5 MG/3 ML VIAL.NEB INH PRN (23:15)
--- NOTE | 2020-06-26 23:54 | NUR ---
PT REMAINS IN STABLE CONDITION, CURRENTLY RESTING ON Sifteo UP
--- NOTE | 2020-06-27 01:25 | NUR ---
Pt states "I'm feeling a little better." Pt rested well on regular hospital bed rails up
--- NOTE | 2020-06-27 02:28 | NUR ---
VSS no s/s of acute distress Resting on regular hospital bed rails up
--- NOTE | 2020-06-27 03:30 | NUR ---
Pt remains in stable condition, continue on ER monitoring VSS
[2020-06-27 03:59] LABS: BASOPHILS % (AUTO) 0.3 % (0.0-2.0); HEMATOCRIT 29.1 % (36-48); HEMOGLOBIN 9.7 g/dL (12.0-16.0); LYMPHOCYTES # (AUTO) 0.4 K/uL (1.0-5.5); LYMPHOCYTES % (AUTO) 11.5 % (20.5-51.5); MEAN CORPUSCULAR HEMOGLOBIN 31 pg (27-31); MEAN CORPUSCULAR HGB CONC 34 % (32-36); MEAN CORPUSCULAR VOLUME 93 fL (79.0-98.0); MONOCYTES % (AUTO) 0.8 % (1.7-9.3); NEUTROPHILS # (AUTO) 3.3 K/uL (1.8-7.7); NEUTROPHILS % (AUTO) 87.4 % (40.0-70.0); PLATELET COUNT (AUTO) 206 K/uL (130-430); RED BLOOD CELL COUNT(AUTO) 3.14 MIL/uL (4.2-6.2); RED CELL DISTRIBUTION WIDTH 14.7 % (9.0-15.0); WHITE BLOOD COUNT (AUTO) 3.8 K/uL (4.8-10.8)
--- NOTE | 2020-06-27 04:15 | NUR ---
Pt used BSC to have medium BM soft brown x 1, and 60 ml clear yellow urine. basic linen change and partial pt clean / perineal care provided successfully
[2020-06-27 04:18] LABS: ANION GAP 11 (5-15); CALCIUM 9.3 mg/dL (8.4-11.0); CHLORIDE 105 mmol/L (98-107); CREATININE 2.03 mg/dL (0.55-1.30); GLUCOSE 174 mg/dL (70-99); PHOSPHORUS 3.2 mg/dL (2.7-4.5); POTASSIUM 4.2 mmol/L (3.5-5.1); SODIUM SERUM 139 mmol/L (136-145); UREA NITROGEN, BLOOD 52 mg/dL (8-21)
--- NOTE | 2020-06-27 05:02 | NUR ---
Pt remains stable resting on regular hospital bed rails up
[2020-06-27] MEDS: NORMAL SALINE 5 ML DISP.SYRIN IVF SCH ×3 (05:12→21:02)
[2020-06-27] MEDS ORDERED: NORMAL SALINE 5 ML DISP.SYRIN IVF SCH (06:00)
--- NOTE | 2020-06-27 06:01 | NUR ---
VSS no s/s of acute distress Resting on regular hospital bed rails up
--- NOTE | 2020-06-27 07:30 | NUR ---
Pt in bed rersting, VSS no distress.
--- NOTE | 2020-06-27 08:30 | NUR ---
Spoke with daughter over phone regarding pt status. Pt currently stable, awaiting Tele bed, VSS.
[2020-06-27] MEDS ORDERED: FUROSEMIDE 40 MG/4 ML VIAL IVP SCH (09:00)
[2020-06-27] MEDS: DICYCLOMINE HCL 10 MG CAPSULE PO SCH ×2 (09:04→21:06)
[2020-06-27] MEDS: CITALOPRAM HYDROBROMIDE 20 MG TABLET PO SCH (09:04)
[2020-06-27] MEDS: APIXABAN 2.5 MG TABLET PO SCH ×2 (09:05→21:07)
[2020-06-27] MEDS: METOPROLOL TARTRATE 25 MG TABLET PO SCH ×2 (09:05→21:06)
--- NOTE | 2020-06-27 09:23 | NUR ---
Pt VSS, eating breakfast, awaiting bed.
[2020-06-27 10:00] VITALS: BP_SYST 125
--- NOTE | 2020-06-27 10:00 | NUR ---
Patient will be admitted to care of [facility]. Admitted to Tele unit. Will go to room 102. Belongings list completed. Complete and up to date summary report printed. SBAR report to be given at bedside with opportunity for questions.
--- NOTE | 2020-06-27 10:00 | NUR ---
ADMISSION: The patient, MINH LOZADA, 84 y/o, F admitted by VIJAYA JON MD, was given written information regarding hospital policies, unit procedures and contact persons. Valuables were checked and noted.
--- NOTE | 2020-06-27 10:05 | NUR ---
Opening Notes Received patient via gucci rodriguez. Received report from JOSE Andrews. Patient is awake, alert and oriented x4. No resp distress noted. Breathing is even and unlabored. Patient denies any SOB at this time. On room air, saturating at 94%. Patient denies any pain at this time. IV site on right FA, 22 gauge intact, saline loc, flushing well at this time. No infiltration or irritation noted. Patient is ambulatory with personal cane, supervision is needed during ambulation. Skin intact. Patient denies any NVD, cough or abnormal bleeding. Patient was oriented to the room. Patient was educated to proper use of the call light. Patient was able to successfully return demonstration telephone advice nurse light. All needs met at this time. Safety and fall precautions in place. Bed in lowest position, locked. Will continue to monitor.
--- NOTE | 2020-06-27 10:30 | NUR ---
Patient is being seen and examined by DR. WONG
--- NOTE | 2020-06-27 11:00 | NUR ---
Patient is being seen and examined by DR. CHAVEZ
--- NOTE | 2020-06-27 11:25 | NUR ---
Patient is being seen and examined by DR. VENEGAS
[2020-06-27 11:45] VITALS: BP_SYST 112
--- NOTE | 2020-06-27 12:30 | NUR ---
Notes Patient is laying in bed resting. Assisted patient to use the restroom. Patient denies any pain upon urination. Reports yellow and clear urine at this time. Denies any pain. No distress noted. Patient is eating lunch at this time. Will continue to monitor.
--- NOTE | 2020-06-27 14:07 | NUR ---
CONSULTATION PAGED/CALLED Reason for Consultation: [] LUCINA Person Who was Notified: [] JESSICA Consulting Physician: [] DR FAM SENIOR IT PROJECT MANAGER FOR DR RÍOS Classroom Monitor Specialty: [] NEPHROLOGY Ordering Physician: [] DR Colin JON Addendum: 06/27/20 at 1412 by Misti Mackay MT/ CONSULTING IS DR MENCHACA
--- NOTE | 2020-06-27 14:12 | NUR ---
CONSULTATION PAGED/CALLED Reason for Consultation: [] CHF Person Who was Notified: [] JESSICA Consulting Physician: [] DR WOOD, VICE PRESIDENT [employer] FOR DR CHAVEZ Psychiatry Teacher Specialty: [] CARDIOLOGY Ordering Physician: [] DR Colin JON
--- NOTE | 2020-06-27 14:25 | NUR ---
Notes/CODE STATUS Patient is awake, alert and oriented x4, watching TV at this time. No resp distress noted. Breathing is even and unlabored. Patient denies any pain at this time. S/w patients daughter, Ernestine, would like to speak with Dr. Peralta when he gets the chance. Per patients daughter, pt has a living trust and is a "DNR". Informed daughter that primary doctor will be updated tomorrow regarding code status. Patient daughter aware and agreed. All needs met at this time. Call light within reach. Bed in lowest position, locked. Will continue to monitor.
[2020-06-27 15:32] VITALS: BP_SYST 107
--- NOTE | 2020-06-27 16:35 | NUR ---
Headache/Tylenol 650 mg Patient is c/o LERMA, requesting pain medication. Administered Tylenol 650 mg PRN, tolerated well. Will continue to monitor.
--- NOTE | 2020-06-27 19:20 | NUR ---
OPENING NOTE: RECEIVED SBAR REPORT FROM DAY SHIFT NURSE. PATIENT IS AWAKED, ALERT AND ORIENTED X4. BREATHING EVEN AND UNLABORED ON RA. NO SIGNS OF RESPIRATORY DISTRESS NOTED AT THI TIME. PATIENT DENIES ANY PAIN. NO SIGNS OF INFILTRATION ON IV SITE, AND FLUSHING WELL. PATIENT IS AMBULATING WITH HER OWN CANE, SUPERVISION/EXPANDER MACHINE OPERATOR IS NEEDED DURING AMBULATION. SAFETY AND FALL PRECAUTIONS MAINTAINED. BED IS ALARMED AND LOCKED IN LOWEST POSITION. CALL LIGHT IS WITH PATIENT. WILL MONITOR PATIENT FOR ANY CHANGES.
[2020-06-27 20:12] VITALS: BP_SYST 144
--- NOTE | 2020-06-27 21:00 | NUR ---
MEDICATION PASS: PATIENT GIVEN SCHEDULED MEDICATIONS. MEDICATIONS ACTIONS AND POTENTIAL SIDE EFFECTS EXPLAINED TO PATIENT. PATIENT VERBALIZED UNDERSTANDING. NO S/S OF ACUTE DISTRESS NOTED AT THIS TIME. BED ALARM IS ON, AND IS LOCKED IN LOWEST POSITION. WILL CONTINUE TO MONITOR.
--- NOTE | 2020-06-27 23:00 | NUR ---
RN NOTES: PATIENT IS RESTING IN BED AT THIS TIME. BREATHING UNLABORED AND EVEN ON RA. NO S/S OF ACUTE DISTRESS NOTED. SAFETY AND FALL PRECAUTIONS ARE IN PLACE. WILL CONTINUE TO MONITOR.
--- NOTE | 2020-06-28 01:00 | NUR ---
URINE SAMPLE: PATIENT ASSISTED TO BATHROOM. URINE SAMPLE COLLECTED, USING HAT URINE PATTERN GRADER SUPERVISOR. PATIENT ASSISTED BACK TO BED. BED ALARM IS ON AND LOCKED IN LOWEST POSITION. CALL LIGHT IS WITH PATIENT. WILL CONTINUE TO MONITOR.
[2020-06-28 01:08] VITALS: BP_SYST 169
[2020-06-28 01:57] LABS: BILIRUBIN,URINE NEGATIVE (NEGATIVE); BLOOD, URINE NEGATIVE (NEGATIVE); CLARITY/URINE CLEAR (CLEAR); COLOR,URINE YELLOW (YELLOW); GLUCOSE,URINE NEGATIVE (NEGATIVE); KETONES,URINE NEGATIVE (NEGATIVE); LEUKOCYTE ESTERASE ,URINE NEGATIVE (NEGATIVE); NITRITE, URINE NEGATIVE (NEGATIVE); PH,URINE 5.5 (5.0-8.0); PROTEIN URINE NEGATIVE (NEGATIVE); UROBILINOGEN,URINE 0.2 (0.2-1.0)
--- NOTE | 2020-06-28 02:12 | NUR ---
NOTES: PATIENT IS SLEEPING AT THIS TIME. CHEST RISE AND FALLS SYMMETRICAL. NO S/S OF ACUTE DISTRESS NOTED AT THIS TIME. SAFETY AND FALL PRECAUTION ARE IN PLACE. CALL LIGHT IS WITHIN PATIENT REACH. WILL CONTINUE TO MONITOR.
--- NOTE | 2020-06-28 04:05 | NUR ---
NOTES: ASSIST PATIENT TO BATHROOM. PATIENT AMBULATE WITH HER PERSONAL CANE. PATIENT ASSISTED BACK TO BATHROOM. NO S/S OF ACUTE DISTRESS. BED ALARM IS ON AND LOCKED IN LOWEST POSITION. CALL LIGHT IS WITH PATIENT. WILL CONTINUE TO MONITOR.
[2020-06-28] MEDS: NORMAL SALINE 5 ML DISP.SYRIN IVF SCH ×3 (05:49→21:26)
[2020-06-28] MEDS: ONDANSETRON HCL 4 MG/2 ML VIAL IVP PRN (06:00)
--- NOTE | 2020-06-28 06:00 | NUR ---
CLOSING NOTE/ZOFRAN: PATIENT C/O NAUSEA, REQUESTING MED. ZOFRAN GIVEN TO PATIENT VIA IV PUSH. PATIENT TOLERATED WELL. NO SIGN OF INFILTRATION AT IV SITE NOTED. NO SIGNS OF ACUTE DISTRESS. BREATHING UNLABORED AND EVEN ON RA. BED ALARM IS ON, LOCKED IN LOWEST POSITION. CALL LIGHT IS WITH PATIENT. WILL ENDORSE PATIENT CARE TO DAY SHIFT NURSE.
[2020-06-28 07:16] LABS: BASOPHILS % (AUTO) 0.2 % (0.0-2.0); EOSINOPHILS % (AUTO) 0.3 % (0.0-4.0); HEMATOCRIT 33.4 % (36-48); HEMOGLOBIN 11.1 g/dL (12.0-16.0); LYMPHOCYTES # (AUTO) 1.8 K/uL (1.0-5.5); LYMPHOCYTES % (AUTO) 15.7 % (20.5-51.5); MEAN CORPUSCULAR HEMOGLOBIN 31 pg (27-31); MEAN CORPUSCULAR HGB CONC 33 % (32-36); MEAN CORPUSCULAR VOLUME 93 fL (79.0-98.0); MONOCYTES # (AUTO) 0.9 K/uL (0.0-1.0); MONOCYTES % (AUTO) 8.2 % (1.7-9.3); NEUTROPHILS # (AUTO) 8.6 K/uL (1.8-7.7); NEUTROPHILS % (AUTO) 75.6 % (40.0-70.0); PLATELET COUNT (AUTO) 259 K/uL (130-430); RED BLOOD CELL COUNT(AUTO) 3.57 MIL/uL (4.2-6.2); WHITE BLOOD COUNT (AUTO) 11.4 K/uL (4.8-10.8)
[2020-06-28 07:22] LABS: ALANINE AMINOTRANSFERASE 16 U/L (12-78); ALBUMIN 3.5 g/dL (3.4-4.8); ANION GAP 9 (5-15); ASPARTATE AMINOTRANSFERASE 20 U/L (10-37); CALCIUM 9.2 mg/dL (8.4-11.0); CHLORIDE 103 mmol/L (98-107); GLUCOSE 86 mg/dL (70-99); POTASSIUM 3.8 mmol/L (3.5-5.1); SODIUM SERUM 140 mmol/L (136-145); THYROID STIMULATING HORMONE 3.23 uIu/mL (0.36-3.74); TOTAL BILIRUBIN 0.5 mg/dL (0.0-1.0); UREA NITROGEN, BLOOD 52 mg/dL (8-21)
--- NOTE | 2020-06-28 07:40 | NUR ---
Opening Notes Patient received in bed awake, alert, and oriented with no signs of distress noted. Reinforced education regarding safety. Patient reoriented to use of call light.
[2020-06-28 08:00] VITALS: BP_SYST 157
[2020-06-28] MEDS: CITALOPRAM HYDROBROMIDE 20 MG TABLET PO SCH (09:16)
[2020-06-28] MEDS: DICYCLOMINE HCL 10 MG CAPSULE PO SCH ×2 (09:16→21:38)
[2020-06-28] MEDS: METOPROLOL TARTRATE 25 MG TABLET PO SCH ×2 (09:17→20:24)
[2020-06-28] MEDS: APIXABAN 2.5 MG TABLET PO SCH ×2 (09:17→21:24)
--- NOTE | 2020-06-28 10:00 | NUR ---
RN Rounds Patient assisted to the bathroom. Patient then assisted back to bed and is resting at this time. No signs of distress noted, no complaints of pain. Safety precautions enforced.
--- NOTE | 2020-06-28 10:11 | NUR ---
Nutrition Update Julian Scale 17 noted. Pt admitted for CHF Diet: Cardiac BMI: 17 kg/m2 RD to follow per nutrition care standards.
[2020-06-28] MEDS ORDERED: NS 100 ML IV ONE (10:15)
[2020-06-28 11:20] VITALS: BP_SYST 172
[2020-06-28] MEDS ORDERED: LOSARTAN POTASSIUM 50 MG TABLET (COZAAR) PO ONE (11:30)
--- NOTE | 2020-06-28 12:00 | NUR ---
RN Rounds Patient resting at this time, no signs of distress noted. Safety precautions enforced.
--- NOTE | 2020-06-28 14:00 | NUR ---
RN Rounds Patient assisted to bathroom. No signs of distress noted.
[2020-06-28 15:20] VITALS: BP_SYST 136
--- NOTE | 2020-06-28 15:41 | NUR ---
CONSULTATION PAGED PAGED DR STEPHENS FOR CONSULTATION [id number]
--- NOTE | 2020-06-28 16:00 | NUR ---
RN Rounds Patient resting in bed, no signs of distress noted at this time. Safety precautions enforced.
--- NOTE | 2020-06-28 18:00 | NUR ---
RN Rounds Patient in no signs of distress at this time. Safety precautions enforced. Reinforced with use of call light.
--- NOTE | 2020-06-28 18:53 | NUR ---
Closing Notes Patient resting and in no signs of distress at this time. Reinforced education regarding safety and use of call light.
--- NOTE | 2020-06-28 19:11 | NUR ---
OPENING NOTE: RECEIVED SBAR REPORT FROM DAY SHIFT RN. PATIENT IS RESTING COMFORTABLY. BREATHING UNLABORED AND EVEN ON RA. NO S/S OF ACUTE DISTRESS NOTED AT THIS TIME. SAFETY AND FALL PRECAUTIONS ARE IN PLACE. CALL LIGHT IS WITH PATIENT. WILL CONTINUE TO MONITOR.
[2020-06-28 19:34] VITALS: BP_SYST 156
--- NOTE | 2020-06-28 20:29 | NUR ---
MEDICATION PASS: 2100 SCHEDULED MEDICATIONS GIVEN TO PATIENT. MEDICATIONS ACTIONS AND POTENTIAL SIDE EFFECTS EXPLAINED TO PATIENT. PATIENT VERBALIZED UNDERSTANDING. NO S/S OF ACUTE DISTRESS NOTED AT THIS TIME. SAFETY AND FALL PRECAUTIONS ARE IN [place], CALL LIGHT IS WITH PATIENT. WILL CONTINUE TO MONITOR.
--- NOTE | 2020-06-28 22:40 | NUR ---
NOTES: PATIENT ASSISTED BATHROOM. PATIENT IS USING HER PERSONAL CANE. PATIENT ASSISTED BACK TO HER BED. NO S/S OF ACUTE DISTRESS NOTED. BED ALARM IS ON AND LOCKED IN LOWEST POSITION. CALL LIGHT IS WITH PATIENT. WILL CONTINUE TO MONITOR.
--- NOTE | 2020-06-29 00:17 | NUR ---
RN ROUNDS: PATIENT APPEARS TO BE SLEEPING, RESPIRATION IS EVEN AND UNLABORED ON RA. NO S/S OF ACUTE DISTRESS NOTED. BED ALARM IS ON AND LOCKED IN LOWEST POSITION. CALL LIGHT IS WITH PATIENT. WILL CONTINUE TO MONITOR.
[2020-06-29 00:21] VITALS: BP_SYST 145
--- NOTE | 2020-06-29 02:00 | NUR ---
RN ROUNDS: PATIENT APPEARS TO BE SLEEPING. RESPIRATION IS EVEN AND UNLABORED. NO S/S OF ACUTE DISTRESS NOTED AT THIS TIME. BED ALARM IS ON AND LOCKED IN LOWEST POSITION. CALL LIGHT IS WITH PATIENT. WILL CONTINUE TO MONITOR.
--- NOTE | 2020-06-29 03:54 | NUR ---
RN ROUNDS: PATIENT IS SLEEPING. BREATHING UNLABORED AND EVEN. NO S/S OF ACUTE DISTRESS NOTED. FALL AND SAFETY PRECAUTIONS ARE IN PLACE. WILL CONTINUE TO MONITOR.
--- NOTE | 2020-06-29 05:00 | NUR ---
RN ROUNDS: PATIENT ASSISTED TO BATHROOM. PATIENT IS USING HER PERSONAL CANE. PATIENT ASSISTED BACK TO BED SAFELY. NO S/S ACUTE DISTRESS NOTED. NO SIGNS OF SOB OR RESPIRATORY DISTRESS NOTED AT THIS TIME. FALL AND SAFETY PRECAUTION IN PLACE. CALL LIGHT IS WITH PATIENT. WILL CONTINUE TO MONITOR.
[2020-06-29] MEDS: NORMAL SALINE 5 ML DISP.SYRIN IVF SCH ×2 (05:35→14:04)
[2020-06-29 05:56] LABS: BASOPHILS % (AUTO) 0.3 % (0.0-2.0); EOSINOPHILS # (AUTO) 0.1 K/uL (0.0-0.4); HEMATOCRIT 31.2 % (36-48); HEMOGLOBIN 10.4 g/dL (12.0-16.0); LYMPHOCYTES # (AUTO) 1.2 K/uL (1.0-5.5); LYMPHOCYTES % (AUTO) 17.3 % (20.5-51.5); MEAN CORPUSCULAR HEMOGLOBIN 31 pg (27-31); MEAN CORPUSCULAR HGB CONC 33 % (32-36); MEAN CORPUSCULAR VOLUME 93 fL (79.0-98.0); MONOCYTES # (AUTO) 0.6 K/uL (0.0-1.0); NEUTROPHILS # (AUTO) 4.9 K/uL (1.8-7.7); NEUTROPHILS % (AUTO) 72.4 % (40.0-70.0); PLATELET COUNT (AUTO) 237 K/uL (130-430); RED BLOOD CELL COUNT(AUTO) 3.35 MIL/uL (4.2-6.2); WHITE BLOOD COUNT (AUTO) 6.8 K/uL (4.8-10.8)
[2020-06-29 06:25] LABS: ALANINE AMINOTRANSFERASE 19 U/L (12-78); ALBUMIN 3.1 g/dL (3.4-4.8); ANION GAP 7 (5-15); ASPARTATE AMINOTRANSFERASE 16 U/L (10-37); CALCIUM 8.9 mg/dL (8.4-11.0); CHLORIDE 104 mmol/L (98-107); CREATININE 1.39 mg/dL (0.55-1.30); GLUCOSE 91 mg/dL (70-99); POTASSIUM 4.2 mmol/L (3.5-5.1); SODIUM SERUM 138 mmol/L (136-145); TOTAL BILIRUBIN 0.4 mg/dL (0.0-1.0); UREA NITROGEN, BLOOD 41 mg/dL (8-21)
--- NOTE | 2020-06-29 06:54 | NUR ---
CLOSING NOTE: IV FLUSH DONE, NO SIGN OF INFILTRATION NOTED. BREATHING UNLABORED AND EVEN ON RA. NO SIGNS OF ACUTE DISTRESS.BED ALARM IS ON AND LOCKED IN LOWEST POSITION. CALL LIGHT IS WITH PATIENT. WILL CONTINUE TO MONITOR AND PATIENT CARE WILL BE ENDORSED TO DAY SHIFT NURSE.
[2020-06-29 07:44] VITALS: BP_SYST 171
--- NOTE | 2020-06-29 07:47 | NUR ---
Opening Note Report received from HIRAL RN. Patient found in [facility]. A/Ox4, speaking in full, complete sentences. Patient denies CP/SOB at this time. Bed in low and locked position, side rails up x3, call light within reach, bed alarm on.
--- NOTE | 2020-06-29 08:00 | NUR ---
Bathroom Patient ambulated to restroom with steady gait and use of cane.
--- NOTE | 2020-06-29 08:05 | NUR ---
Bladder scan Post void residual, bladder scan: 136, 131, 150 MD Navarrete aware Per MD Navarrete, insert indwelling holland if post void residual >200 ml U.O.
[2020-06-29] MEDS: CITALOPRAM HYDROBROMIDE 20 MG TABLET PO SCH (08:06)
[2020-06-29] MEDS: DICYCLOMINE HCL 10 MG CAPSULE PO SCH (08:07)
[2020-06-29] MEDS: METOPROLOL TARTRATE 25 MG TABLET PO SCH (08:07)
[2020-06-29] MEDS: ONDANSETRON HCL 4 MG/2 ML VIAL IVP PRN ×2 (08:07→18:22)
[2020-06-29] MEDS: APIXABAN 2.5 MG TABLET PO SCH (10:17)
[2020-06-29 11:36] VITALS: BP_SYST 146
--- NOTE | 2020-06-29 12:45 | NUR ---
Missing Bracelet Patient states she is missing a gold bangle bracelet. Patient states she felt it slip off her wrist last night when she was in bed, but has been unsuccessful locating it in her linens. Primary RN moved patient to a chair and searched through the linens and patient's belongings for her bracelet. Unable to locate patient's bracelet at this time. skiver welt end, robert Barbosa.
[2020-06-29 15:36] VITALS: BP_SYST 164
--- NOTE | 2020-06-29 16:30 | NUR ---
Bathroom Patient ambulated to restroom with steady gait and use of her cane. No assist required. + 1 bowel movement, stool firm and solid.
--- NOTE | 2020-06-29 18:23 | NUR ---
Closing Note Patient in bed, NAD, patient sitting up in bed eating dinner. Denies CP/SOB. Patient pending MD re-evaluation. Bed in low and locked position, side rails up x3, bed alarm on, call light within reach.
--- NOTE | 2020-06-29 20:00 | NUR ---
Pt A/O x4. No distress noted or reported. Pt denied any pain or discomfort at this time.
--- NOTE | 2020-06-29 20:05 | NUR ---
Pt noted to walk with cane and unsteady at times. Pt needs help OOB and supervision to bathroom. High Fall Risk precautions in place. Pt instructed to call for assistance in and OOB and to the restroom. Pt verbalized understanding. Call light and belongings within pt's reach. Encouraged pt to turn and reposition self every 2 hours while awake. Pt verbalized understanding. Skin intact. All safety precautions in place. Monitoring continued.
--- NOTE | 2020-06-30 06:30 | NUR ---
No distress noted or reported throughout shift. Pt denied any pain or discomfort throughout shift. Assisted pt to bathroom 4 times during shift. No adverse events during shift. VS remained stable. Pt safety maintained during shift.
--- NOTE | 2020-06-30 07:30 | NUR ---
Opening Note Report received from HIRAL RN. Patient found in [facility], asleep but arousable to voice commands. Patient reports minor nausea, but denies pain at this time. NAD. Bed in low and locked position, side rails up x3, call light within reach, bed alarm on.
[2020-06-30 08:00] VITALS: BP_SYST 165
[2020-06-30] MEDS: CITALOPRAM HYDROBROMIDE 20 MG TABLET PO SCH (08:43)
[2020-06-30] MEDS: METOPROLOL TARTRATE 25 MG TABLET PO SCH ×2 (08:43→08:44)
[2020-06-30] MEDS: DICYCLOMINE HCL 10 MG CAPSULE PO SCH ×2 (08:43→08:44)
[2020-06-30] MEDS ORDERED: FUROSEMIDE 20 MG TABLET PO SCH (09:00)
[2020-06-30] MEDS ORDERED: METOCLOPRAMIDE HCL 10 MG/2 ML VIAL IVP PRN (09:00)
[2020-06-30] MEDS ORDERED: FUROSEMIDE 20 MG TABLET ONE (09:01)
--- NOTE | 2020-06-30 10:25 | NUR ---
to PT via wheelchair
--- NOTE | 2020-06-30 10:55 | NUR ---
Return from PT
--- NOTE | 2020-06-30 11:04 | NUR ---
Bathroom Patient ambulatory to restroom with steady gait and use of cane. Patient brushed her teeth.
[2020-06-30 12:46] VITALS: BP_SYST 163
[2020-06-30 13:35] VITALS: BP_SYST 163
[2020-06-30 15:45] VITALS: BP_SYST 182
--- NOTE | 2020-06-30 16:25 | NUR ---
Cardiology outpatient appointment Contacted MD Marie's office to schedule outpatient appointment for CHF diagnosis. PLEASE FOLLOW UP WITH ANIMATION DIRECTOR, MD MARIE Monday07/08/[address] [place] [id number] Information left in patient's discharge chart
[2020-06-30 16:26] VITALS: BP_SYST 163
--- NOTE | 2020-06-30 17:00 | NUR ---
Discharge Patient discharged from hospital. Patient's peripheral IV removed and dressed. Patient changed back into her clothes. Patient's belongings given back to patient. Patient wheelchaired to front of hospital, where her daughter was waiting to take her home. Discharge instructions, including hospice care, given to daughter with no further questions.
--- NOTE | 2020-07-02 15:13 | NUR ---
Discharge Follow Up Phone Call Phoned patient, , and patient stated that she signed up for [facility] hospice prior to leaving the hospital. I spoke with her daughter also. They are both coping well and receiving great support from [facility]. offered support.
== END 2020-06-30 16:50 | disposition hospice, home (50) | DRG 682 ==
LOC: SED 18:13 → STU 21:40
PROVIDERS: ADMIT Internal Medicine Hospice and Palliative Medicine; ATTEND Internal Medicine Hospice and Palliative Medicine
DX: N17.9 Acute kidney failure, unspecified (principal); J96.21 Acute and chronic respiratory failure with hypoxia; I13.0 Hypertensive heart and chronic kidney disease with heart failure and stage 1 through stage 4 chronic kidney disease, or unspecified chronic kidney disease; E87.1 Hypo-osmolality and hyponatremia; I25.10 Atherosclerotic heart disease of native coronary artery without angina pectoris; I50.811 Acute right heart failure; D64.9 Anemia, unspecified; E78.5 Hyperlipidemia, unspecified; F41.9 Anxiety disorder, unspecified; I07.1 Rheumatic tricuspid insufficiency; I27.29 Other secondary pulmonary hypertension; J44.9 Chronic obstructive pulmonary disease, unspecified; I48.0 Paroxysmal atrial fibrillation; K58.9 Irritable bowel syndrome, unspecified; M17.12 Unilateral primary osteoarthritis, left knee; N18.9 Chronic kidney disease, unspecified; Z96.651 Presence of right artificial knee joint; R26.81 Unsteadiness on feet; R73.9 Hyperglycemia, unspecified; Z20.828 Contact with and (suspected) exposure to other viral communicable diseases; Z90.710 Acquired absence of both cervix and uterus; Z79.01 Long term (current) use of anticoagulants
CPT/HCPCS: 36415; 71045; 71250-TC; 76770; 78579; 78580-TC; 80048; 80053; 81003; 82550-TC; 83735-TC; 83880; 84100-TC; 84443-TC; 84484; 85025; 93005; 93306; 94640; 96374; 97110-GP; 97116-GP; 99285; A9539; A9540; G0378; J1940; J2405; J7512